=== PATIENT | male | born 1935 | race Caucasian/White ===

== ENCOUNTER 2020-07-24 18:16 | Emergency (ER) | payer OTHER ==
[~2020-07-24] VITALS: Ht 182.9 cm; Wt 79.4 kg
[2020-07-24 19:39] LABS: Hematocrit 27.4 % (41.0-53.0); Mean Corpuscular Hemoglobin 31.8 pg (28.0-32.0); Mean Corpuscular Hgb Conc. 32.9 g/dL (32.0-36.0); Mean Corpuscular Volume 96.8 fL (80.0-100.0); Platelet Count (auto) 314 10^3/uL (140-450); Red Blood Cells 2.83 10^6/uL (4.5-5.90); White Blood Cell 8.3 10^3/uL (4.4-10.8)
[2020-07-24 19:52] LABS: Red Cell Distribution Width 20.7 % (11.8-14.3)
[2020-07-24 19:53] LABS: Basophils % (manual) 0 (0.0-2.0); Blast Cells 0; Metamyelocytes % 0; Myelocytes % 0; Promyelocytes % 0; Reactive Lymphocytes 0
[2020-07-24 19:54] LABS: Albumin 2.3 g/dL (3.4-5.0); Calcium 7.9 mg/dL (8.5-10.1)
[2020-07-24 19:55] LABS: BUN/Creatinine Ratio 20.9
[2020-07-24 19:59] LABS: INR 1.68 (0.9-1.15); Partial Thromboplastin Time 32.4 sec (23.0-31.2)
[2020-07-24 20:01] LABS: Bilirubin, Total 0.3 mg/dL (0.2-1.0); Total Protein 6.9 g/dL (6.4-8.2)
[2020-07-24 20:45] LABS: Band Neutrophils % (manual) 3; Eosinophils % (manual) 2 (0-7); Lymphocytes % (manual) 11 (10.0-50.0); Monocytes % (manual) 2 (0-12)
[2020-07-24] MEDS ORDERED: AZITHROMYCIN 500MG/ 250ML 250 ML IV ONE (21:15)
[2020-07-24] MEDS ORDERED: DexAMETHasone SOD PHOS 10MG/1ML VIAL INJ IV ONE (21:15)
[2020-07-24] MEDS ORDERED: DOXYCYCLINE 100MG/250ML 250 ML IV ONE (21:15)
[2020-07-25 00:54] LABS: Urine Bacteria FEW /hpf (None Seen); Urine Blood TRACE /uL (Negative); Urine Hyaline Cast FEW /lpf (0 - 2); Urine Specific Gravity 1.017 (1.001-1.035); Urine WBC <1 /hpf (0 - 3)
[2020-07-25 07:20] VITALS: BP 142/82
== END 2020-07-25 08:06 | disposition short-term general hospital (02) ==
LOC: EDBD 18:16 → ER 18:20
DX: J18.9 Pneumonia, unspecified organism (principal); N18.9 Chronic kidney disease, unspecified; D63.1 Anemia in chronic kidney disease; R60.1 Generalized edema; C64.1 Malignant neoplasm of right kidney, except renal pelvis; J43.9 Emphysema, unspecified; Z20.822 Contact with and (suspected) exposure to COVID-19
CPT/HCPCS: 36415; 71045; 71250; 74176; 80053; 81001; 82140; 82728; 83605; 83735; 83880; 84484; 85007; 85027; 85379; 85610; 85730; 87040; 87426; 93005; 96365; 96366; 96368; 96375; 99285; C9803; J0456; J1100; J3490; U0003

== ENCOUNTER 2020-10-08 19:32 | Emergency (ER) | payer OTHER ==
[~2020-10-08] VITALS: Ht 172.7 cm; Wt 72.6 kg
[2020-10-08] MEDS ORDERED: SODIUM CHLORIDE 0.9% 1,000 ML IV ONE (20:00)
[2020-10-08 21:29] LABS: Mean Corpuscular Hgb Conc. 35.7 g/dL (32.0-36.0); White Blood Cell 7.1 10^3/uL (4.4-10.8)
[2020-10-08 21:31] LABS: Hematocrit 30.1 % (41.0-53.0); Hemoglobin 10.7 g/dL (13.5-17.5); Mean Corpuscular Hemoglobin 34.2 pg (28.0-32.0); Mean Corpuscular Volume 95.8 fL (80.0-100.0); Platelet Count (auto) 261 10^3/uL (140-450); Red Blood Cells 3.14 10^6/uL (4.5-5.90); Red Cell Distribution Width 13.4 % (11.8-14.3)
[2020-10-08 21:38] LABS: Basophils % (manual) 0 (0.0-2.0); Blast Cells 0; Eosinophils % (manual) 0 (0-7); Metamyelocytes % 0; Myelocytes % 0; Promyelocytes % 0; Reactive Lymphocytes 0
[2020-10-08 21:46] LABS: Calcium 8.3 mg/dL (8.5-10.1); Magnesium 1.9 mg/dL (1.6-2.6); Potassium 3.7 mmol/L (3.5-5.1)
[2020-10-08 21:49] LABS: BUN/Creatinine Ratio 17.8; Bilirubin, Total 0.4 mg/dL (0.2-1.0)
[2020-10-08 22:06] LABS: Band Neutrophils % (manual) 14; Lymphocytes % (manual) 20 (10.0-50.0)
[2020-10-08 22:07] LABS: Monocytes % (manual) 18 (0-12)
[2020-10-09] MEDS ORDERED: LOPERAMIDE HCL 2 MG CAP PO PRN (06:15)
[2020-10-09 09:12] VITALS: BP 102/53
== END 2020-10-09 09:38 | disposition short-term general hospital (02) ==
LOC: EDBD 19:32 → ER 19:32
DX: E86.0 Dehydration (principal); I11.0 Hypertensive heart disease with heart failure; I50.9 Heart failure, unspecified; I25.10 Atherosclerotic heart disease of native coronary artery without angina pectoris; Z92.21 Personal history of antineoplastic chemotherapy; Z20.822 Contact with and (suspected) exposure to COVID-19; Z88.8 Allergy status to other drugs, medicaments and biological substances
CPT/HCPCS: 36415; 80053; 83735; 85007; 85027; 87426; 93005; 96360; 99285; J7030

== ENCOUNTER 2021-07-19 23:18 | Inpatient (IN) | payer OTHER ==
[~2021-07-19] VITALS: Ht 172.7 cm; Wt 49.4 kg
[2021-07-20 00:58] LABS: Basophils # (auto) 0.1 10 ^3/uL (0-0.2); Eosinophils # (auto) 0 10 ^3/uL (0-0.8); Hemoglobin 7.7 g/dL (13.5-17.5); Lymphocytes # (auto) 0.5 10 ^3/uL (0.4-5.4)
[2021-07-20 01:00] LABS: Basophils % (auto) 0.4 % (0.0-2.0); Hematocrit 22.9 % (41.0-53.0); Lymphocytes % (auto) 3.3 % (10.0-50.0); Mean Corpuscular Hemoglobin 29.6 pg (28.0-32.0); Mean Corpuscular Hgb Conc. 33.7 g/dL (32.0-36.0); Mean Corpuscular Volume 87.9 fL (80.0-100.0); Monocytes # (auto) 1.5 10 ^3/uL (0-1.3); Monocytes % (auto) 9.2 % (0.0-12.0); Neutrophils # (auto) 13.8 10 ^3/uL (1.6-8.6); Neutrophils % (auto) 87.1 % (37.0-80.0); Red Blood Cells 2.61 10^6/uL (4.5-5.90); Red Cell Distribution Width 15.3 % (11.8-14.3); White Blood Cell 15.8 10^3/uL (4.4-10.8)
[2021-07-20 01:12] LABS: Albumin 1.9 g/dL (3.4-5.0); BUN/Creatinine Ratio 14.2; Calcium 8.1 mg/dL (8.5-10.1); Potassium 4.5 mmol/L (3.5-5.1)
[2021-07-20 01:15] LABS: Bilirubin, Total 0.4 mg/dL (0.2-1.0)
[2021-07-20] MEDS ORDERED: PANTOPRAZOLE 40 MG/10 ML VIAL INJ IV ONE (07:30)
[2021-07-20] MEDS ORDERED: FERROUS SULFATE 325mg EC TAB PO ONE (08:15)
[2021-07-20] MEDS ORDERED: SODIUM CHLORIDE 0.9% 1,000 ML IV ONE (08:15)
[2021-07-20] MEDS ORDERED: ONDANSETRON HCL 4 MG/2 ML VIAL IV PRN (10:45)
[2021-07-20] MEDS ORDERED: NITROGLYCERIN 0.4 MG SL TAB SL PRN (10:45)
[2021-07-20] MEDS ORDERED: SODIUM CHLORIDE 0.9% 1,000 ML IV SCH (10:45)
[2021-07-20] MEDS ORDERED: MORPHINE SULFATE INJECTION 2 MG/ML SYRG IV PRN ×2 (10:45)
[2021-07-20] MEDS ORDERED: ACETAMINOPHEN 325 MG TAB PO PRN (10:45)
[2021-07-20] MEDS ORDERED: HYDROcodone-ACET 5/325MG TAB PO PRN (10:45)
[2021-07-20] MEDS ORDERED: PIPERACILLIN-TAZOB 3.375GM 100 ML IV SCH (11:00)
[2021-07-20] MEDS ORDERED: PIPERACILLIN-TAZOB 2.25GM 50 ML IV SCH (11:15)
[2021-07-20 12:06] VITALS: BP 117/47
== END 2021-07-20 12:03 | disposition short-term general hospital (02) | DRG 377 ==
LOC: ER 23:18 → EDBD 23:18 → TELE 07-20 10:44
PROVIDERS: ADMIT Family Medicine; ATTEND Family Medicine
DX: K92.2 Gastrointestinal hemorrhage, unspecified (principal); E43 Unspecified severe protein-calorie malnutrition; Z68.1 Body mass index [BMI] 19.9 or less, adult; I13.0 Hypertensive heart and chronic kidney disease with heart failure and stage 1 through stage 4 chronic kidney disease, or unspecified chronic kidney disease; I25.10 Atherosclerotic heart disease of native coronary artery without angina pectoris; I50.9 Heart failure, unspecified; J43.9 Emphysema, unspecified; N18.9 Chronic kidney disease, unspecified; R53.81 Other malaise; Z20.822 Contact with and (suspected) exposure to COVID-19; D63.1 Anemia in chronic kidney disease; N28.89 Other specified disorders of kidney and ureter; Z85.038 Personal history of other malignant neoplasm of large intestine; Z90.49 Acquired absence of other specified parts of digestive tract
CPT/HCPCS: 36415; 74176; 80053; 82270; 85025; 86850; 86900; 86901; 87045; 87427; 87493; 96361; 96374; C9113; G0378; J2543